=== PATIENT | male | born 1940 | race African-American/Black ===

== ENCOUNTER 2016-12-28 06:59 | Day surgery (SDC) | payer OTHER ==
[2016-12-23 10:00] LABS: BASOPHILS 0.6 %; BASOPHILS ABSOLUTE 0.05 10/3/uL (0.0-0.16); EOSINOPHILS 2.6 %; EOSINOPHILS ABSOLUTE 0.23 10/3/uL (0.0-0.53); HEMOGLOBIN 14.5 g/dL (13.6-17.8); IMMATURE GRANULOCYTES 0.2 %; IMMATURE GRANULOCYTES ABSOLUTE 0.02 10/3/uL (0.0-0.11); LYMPHOCYTES 25.2 %; LYMPHOCYTES ABSOLUTE 2.19 10/3/uL (0.67-4.30); MEAN CORPUSCULAR HEMOGLOB 28.9 pg (26.0-34.0); MEAN CORPUSCULAR VOLUME 87.5 fL (80-100); MEAN PLATELET VOLUME 10.1 fL (9.2-13.0); MONOCYTES 11.7 %; MONOCYTES ABSOLUTE 1.02 10/3/uL (0.21-1.20); NEUTROPHILS 59.7 %; NEUTROPHILS ABSOLUTE 5.19 10/3/uL (2.02-8.40); PLATELET COUNT 234 10/3/uL (150-400); RBC DISTRIBUTION WIDTH 16.1 % (12.0-16.0); RED CELL COUNT 5.02 10/6/uL (4.7-6.1); WHITE BLOOD CELLS 8.7 10/3/uL (4.5-10.5)
[2016-12-23 10:02] LABS: HEMATOCRIT 43.9 % (40.0-51.0); MANUAL DIFF NO %
[2016-12-23 10:12] LABS: ALBUMIN 3.8 G/DL (3.5-5.0); ALKALINE PHOSPHATASE 130 U/L (45-117); BUN (BLOOD UREA NITROGEN) 22 MG/DL (6-23); CALCIUM, SERUM 9.5 MG/DL (8.5-10.4); CHLORIDE, SERUM 106 MMOL/L (96-112); CO2 (CARBON DIOXIDE) 30 MMOL/L (24-34); CREATININE 1.69 MG/DL (0.70-1.30); GFR AFRICAN AMERICAN 45 ML/MIN (>=60); GFR NON AFRICAN AMERICAN 39 ML/MIN (>=60); GLOBULIN 3.7 G/DL (2.5-4.1); GLUCOSE, SERUM 73 MG/DL (60-99); POTASSIUM, SERUM 3.9 MMOL/L (3.5-5.3); SGOT(AST) 17 U/L (5-40); SGPT(ALT) 26 U/L (5-65); SODIUM, SERUM 144 MMOL/L (135-148); TOTAL BILIRUBIN 0.2 MG/DL (0-1.2); TOTAL PROTEIN 7.5 G/DL (6.0-8.5)
--- NOTE | ~2016-12-28 | OP ---
Record Of Operation [facility] [address] [place]. [address] NAME: SANGEETHA MCKEON : 44 STATUS : REG [facility] PAT#: [id number] AGE: 76 ADM/REG DATE : 12/28/16 MR#: [id number] REPORT SERV DATE: 12/28/16 DICTATED BY: FRANDY SELLERS III DATE: 12/28/16 REPORT STATUS : Draft TRANSCRIBED BY: MODL DATE: 12/28/16 DATE OF PROCEDURE: 12/28/2016 PREOPERATIVE DIAGNOSES: Chronic cholecystitis, with gallbladder wall thickening, cholelithiasis, of concern radiographically for possible gallbladder cancer. POSTOPERATIVE DIAGNOSES: Chronic cholecystitis, with gallbladder wall thickening, cholelithiasis, of concern radiographically for possible gallbladder cancer. PROCEDURE: Laparoscopic cholecystectomy. SURGEON: Frandy Sellers M.D. ANESTHESIA: General with intubation. COMPLICATIONS: None. ESTIMATED BLOOD LOSS: Less than 30 mL. SPECIMENS: Gallbladder. DRAINS: None. LAP AND SPONGE COUNT: Correct x3. BRIEF HISTORY: This 76-year-old male, presented with evidence for chronic cholecystitis. This imaging study shows a thickened gallbladder dawikns, concern for possible gallbladder cancer. It was felt that laparoscopic cholecystectomy, possible laparotomy, was indicated. This procedure, the risks, benefits, and alternatives, including not limited to the risk for bleeding, infection, common bile duct injury, bile leak, retained common bile stone, enterotomy, or injury to any abdominal structure, the definite possible need for laparotomy, possible persistence of his symptoms unrelieved by surgery, possibility of postoperative diarrhea or incisional hernia, possible need to return for further surgery if the gallbladder cancer were found on final pathology, and unforeseen complications including deep venous thrombosis, pulmonary embolus, myocardial infarction, stroke, pneumonia, and , were fully and completely the patient's family at length prior to surgery. The fact that this was a major operation with risk for major morbidity and mortality and no guarantee for relief of his symptoms were explained. The expected length of recovery with both open laparoscopic procedures were explained. The fact that he would be at increased risk for common bile duct injury, bile leak, or surgical complications, due to the possibility of gallbladder cancer, and due to the inflammatory changes was explained, as well again, the possible need for further surgery. The patient had questions which were answered. He understood the risks and agreed to surgery as planned. FINDINGS: The patient's gallbladder dawkins were thickened, inflamed, and there were dense adhesions between the omentum and the gallbladder, with omentum completely engulfing the Record Of Operation [place] [id number] [facility] [place]. [address] NAME: SANGEETHA MCKEON : 44 STATUS : REG [facility] PAT#: [id number] AGE: 76 ADM/REG DATE : 12/28/16 MR#: [id number] REPORT SERV DATE: 12/28/16 DICTATED BY: FRANDY SELLERS III DATE: 12/28/16 REPORT STATUS : Draft TRANSCRIBED BY: MODAishwarya DATE: 12/28/16 gallbladder, all consistent with chronic gallbladder disease. This appeared to be consistent with cholecystitis. The liver and remainder of upper abdomen were otherwise unremarkable as far as we could determine through the laparoscope. It should be noted that on removing the gallbladder Surgicel was placed in the gallbladder bed to help with hemostasis. DESCRIPTION OF PROCEDURE: After being appropriately identified and after discussing the risks of surgery with the patient and his family in the preoperative area, the patient was taken to the operating room and placed in the supine position on the operating room table. General anesthesia was administered. He was intubated without difficulty. The abdomen was prepped and draped sterilely in the usual fashion. After an appropriate "time-out" per JCAHO standards, a small transverse incision was made below the umbilicus. The skin and fascia on either side was elevated with towel clips. A Veress needle was placed through the incision into the peritoneal cavity. Correct position of the needle in the peritoneal cavity was confirmed by the hanging drop test. The abdominal cavity was then insufflated to about 13 mmHg with carbon dioxide. Correct position of air in the peritoneal cavity was confirmed by palpation. The Veress needle was removed and replaced with 10-mm trocar. The laparoscope was placed through this. The patient was placed in the reverse Trendelenburg position and to his left. A second 10-mm trocar was placed just below the xiphoid process, to the right of the falciform ligament, under direct vision with the laparoscope. Two 5-mm trocars were placed along the right subcostal margin, one in the midaxillary line, the other in the midclavicular line. These were also placed under direct vision with the laparoscope. The upper abdomen was inspected. The gallbladder appeared to be chronically diseased. The gallbladder dawkins were thickened and inflamed consistent chronic cholecystitis. The liver and remainder of the upper abdomen were otherwise unremarkable as far as we could determine through the laparoscope. The appropriate instruments were placed through the trocars. The gallbladder was grasped and the infundibulum of the gallbladder was retracted laterally and inferiorly so as to expose the triangle of Calot. Using careful sharp and blunt dissection, the cystic duct was carefully and meticulously defined proximally and distally. The cystic duct was fairly long. The junction of the cystic duct with the common bile duct was appreciated, but not skeletonized. The cystic artery was similarly defined proximally and distally. The fibrous and fatty tissue between these structures was divided so as to clearly identify the critical angle. Once these structures were clearly defined, the cystic duct was clipped using two clips on the common bile duct side and one on the gallbladder side, all placed as close to the gallbladder as possible, taking care not encroach upon or injure the common bile duct in any way. The cystic duct was then divided between these clips as close to the gallbladder as possible. We elected not to perform a cholangiogram because there was no preoperative or intraoperative evidence for biliary dilatation and because the patient's preoperative liver enzymes were normal and because his biliary anatomy was clearly defined. Again, the structure was not divided or clipped until the critical angle and triangle of Calot had been clearly identified. The cystic artery was then similarly clipped and divided as close to the gallbladder as possible. Using the spatula and the cautery, the gallbladder was carefully dissected from the liver bed. This went very well. Before the gallbladder was completely removed, the gallbladder bed and portal areas were irrigated numerous times with saline. The saline was aspirated dry. This process was repeated several times until hemostasis was meticulously and thoroughly assured in all areas. It was also assured that the clips in the portal areas were in good position and Record Of Operation [place] [id number] [facility] [place]. [address] NAME: SANGEETHA MCKEON : 44 STATUS : REG [facility] PAT#: [id number] AGE: 76 ADM/REG DATE : 12/28/16 MR#: [id number] REPORT SERV DATE: 05/08/17 DICTATED BY: FRANDY SELLERS III DATE: 12/28/16 REPORT STATUS : Draft TRANSCRIBED BY: JUSTUS DATE: 12/28/16 there was no extravasation of bile from any accessory bile duct. Once this was assured, the gallbladder was completely dissected away from the liver and placed in the Endopouch. The liver bed was elevated, irrigated, and inspected for meticulous and thorough hemostasis and for absence of any biliary extravasation and to be certain that the clips were in good position. Once this was assured, the gallbladder and Endopouch were brought out through the infraumbilical incision and placed in the laparoscope through the subxiphoid port. The fascia of the infraumbilical incision was closed with 0 Vicryl suture. The lateral two trocars were removed. These two lower trocar sites were inspected on the underside for hemostasis with the laparoscope. Once this was assured, the subxiphoid trocar was removed under direct vision with the laparoscope to assure hemostasis in this incision. The air was removed from the peritoneal cavity through this incision. The skin incisions were inspected for hemostasis, they were closed with running subcuticular 4-0 Monocryl stitches. They were injected with one-half percent Marcaine. Dressings were applied. Anesthesia was reversed and the patient was taken to the recovery room in stable condition. The patient tolerated the procedure well. His family was informed of the results of surgery. The patient was discharged later when he was stable, comfortable and tolerating liquids and able to void and ambulate. His family was advised that he should remain on a liquid diet today and advance this as tolerated to a regular diet tomorrow. He should keep wounds clean and dry for 48 hours and that he should not drive for 3-4 days after surgery or while using narcotics or Phenergan. They were advised that he should resume his usual medications. He was given a prescription for a narcotic and Phenergan, which he was advised to not take while driving. ANGIE/JUSTUS Frandy Sellers III, M.D. / [id number] CC: Frandy Sellers III, M.D. Reji Mccullough M.D.
--- NOTE | ~2016-12-28 | PREOPHP ---
PreOp History and Physical [address] [place]. [address] NAME: SANGEETHA MCKEON : 44 STATUS : PRE [facility] PAT#: [id number] AGE: 76 ADM/REG DATE : MR#: [id number] REPORT SERV DATE: 12/28/16 DICTATED BY: FRANDY BENAVIDEZ III DATE: 12/13/16 REPORT STATUS : Draft TRANSCRIBED BY: MODL DATE: 12/13/16 HISTORY OF PRESENT ILLNESS: This 76-year-old male comes to the operating room for laparoscopic cholecystectomy, possible laparotomy, for a possible gallbladder malignancy. The patient recently had some pulmonary complaints. He underwent a CT scan of the chest and incidentally was noted to have a possible gallbladder mass. Subsequent workup included MRI of the abdomen and gallbladder ultrasound, all of which showed thickening of the gallbladder and a possible mass of concern for a neoplasm, in addition to gallstones. Although the patient has had no definite biliary symptoms, there is concern radiographically the possibility of a gallbladder neoplasm or malignancy. The patient therefore comes now for laparoscopic cholecystectomy, possible laparotomy. The option of nonoperative management has been offered to the patient but declined. PAST MEDICAL HISTORY: 1. Hypertension. 2. History of prostate cancer. 3. Gout. 4. Chronic kidney disease. 5. Arthritis. PAST SURGICAL HISTORY: Includes knee surgery and prostatectomy. MEDICATIONS: Allopurinol, amlodipine, potassium, losartan, triamterene, Ellipta and vitamin D. FAMILY HISTORY: Positive for hypotension. SOCIAL HISTORY: The patient has a previous history of tobacco abuse. He has a history of alcohol use. ALLERGIES: NONE. REVIEW OF SYSTEMS: The patient complains of shortness of breath, swelling in his hands and feet at times, kidney stones, joint pain, and back pain. PHYSICAL EXAMINATION: GENERAL: He is a male, in no acute distress. He is alert and oriented x3. VITAL SIGNS: Blood pressure 132/76, pulse 86, and temperature 96.7. HEENT: Unremarkable. NEUROLOGIC: Cranial nerves 2 through 12 are normal. LUNGS: Clear. CARDIAC: Normal. ABDOMEN: Soft, nontender. The patient has diastasis recti noted. EXTREMITIES: Normal. PreOp History and Physical [address] [address] NAME: SANGEETHA MCKEON : 44 STATUS : PRE [facility]#: [id number] AGE: 76 ADM/REG DATE : MR#: [id number] REPORT SERV DATE: 12/28/16 DICTATED BY: FRANDY BENAVIDEZ III DATE: 12/13/16 REPORT STATUS : Draft TRANSCRIBED BY: JUSTUS DATE: 12/13/16 LABORATORY DATA: Recent MRI of the abdomen shows gallstones. There is noted to be sludge in the gallbladder as well. There is noted to be the previously distended Phrygian cap is contracted around the mass or stones in the gallbladder, concerning for malignancy, for which the radiologist has recommended a cholecystectomy. Previous gallbladder ultrasound noted the gallbladder was difficult to evaluate because of shadowing from calcifications. It appeared the gallbladder was contracted and there was noted be irregular thickening of the gallbladder wall, thought possibly secondary chronic cholecystitis, for which an MRI was recommended, which was performed as above. Previous CT scan of the chest showed indeterminate circumferential wall thickening of the fundus of the gallbladder, concerned for a possible annular or segmental adenomyomatosis or gallbladder cancer. ASSESSMENT: 76-year-old male with: 1. Gallbladder wall thickening, possible mass, concern for possible gallbladder neoplasm or possible primary malignancy. 2. History of tobacco abuse. 3. History of chronic lung disease secondary to tobacco abuse. 4. History of prostate cancer, status post prostatectomy. 5. History of hypertension. 6. Gout. 7. Chronic kidney disease. PLAN: The patient comes to the operating room now for laparoscopic cholecystectomy, possible laparotomy. This procedure, the risks, benefits, and alternatives, including not limited to the risk for bleeding, infection, common bile duct injury, bile leak, retained common bile stone, enterotomy, or injury to any abdominal structure, bile leak, retained common bile stone, postop diarrhea or incisional hernia, possible need for laparotomy and unforeseen complications including deep venous thrombosis, pulmonary embolus, myocardial infarction, stroke, pneumonia, and , have been explained to the patient prior to surgery. The fact that this is a major operation with risk for major morbidity, mortality, no guarantee for relief of his symptoms, which are minimal, has been explained. The expected length of recovery with open laparoscopic procedure has been explained. The possible need to return for further surgery if pathology shows gallbladder cancer necessitating liver resection or lymph node dissection has been explained. The patient's questions have been answered. He clearly understands the risks and agrees to surgery as planned. ANGIE/JUSTUS Frandy Benavidez III, M.D. / [id number]
[~2016-12-28 06:59] MED LIST: B/P MEDICATION; COZAAR100 MG PO; DITRO5 PO; HCTZ12.5 PO; K-TABS10 MEQ PO; MAX25 PO; NORV10 PO; PRIN20 PO
[2016-12-28 14:37] LABS: HEMATOCRIT 42.3 % (40.0-51.0); HEMOGLOBIN 14.1 g/dL (13.6-17.8)
== END 2016-12-28 15:45 | disposition home or self-care (01) ==
LOC: SDC 06:59
PROVIDERS: Surgery
PROC: 0FT44ZZ Resection of Gallbladder, Percutaneous Endoscopic Approach (ICD-10-PCS; principal; 2016-12-28 09:15)
DX: K80.10 Calculus of gallbladder with chronic cholecystitis without obstruction (principal); I12.9 Hypertensive chronic kidney disease with stage 1 through stage 4 chronic kidney disease, or unspecified chronic kidney disease; N18.9 Chronic kidney disease, unspecified; K21.9 Gastro-esophageal reflux disease without esophagitis; H40.9 Unspecified glaucoma; H26.9 Unspecified cataract; M19.90 Unspecified osteoarthritis, unspecified site; Z96.652 Presence of left artificial knee joint; Z85.46 Personal history of malignant neoplasm of prostate; Z92.3 Personal history of irradiation; Z79.899 Other long term (current) drug therapy; Z98.890 Other specified postprocedural states
CPT/HCPCS: 71020; 80053; 85014; 85018; 85025; 88304; 93005; A9270-GY; J0690; J2250; J2270; J2405; J2710; J3010